=== PATIENT | female | born 1970 | race Two or more races ===

== ENCOUNTER 2022-06-25 14:18 | Emergency (ER) | payer OTHER ==
[~2022-06-25] VITALS: Ht 160 cm; Wt 62.1 kg
[2022-06-25] MEDS ORDERED: LEVO-T88 MCG PO (14:36)
[2022-06-25] MEDS ORDERED: LIOTHYRONINE SO5 MCG PO (14:36)
== END 2022-06-25 18:51 | disposition home or self-care (01) ==
LOC: ER 14:18
DX: N39.0 Urinary tract infection, site not specified (principal)

== ENCOUNTER 2024-05-17 05:00 | Emergency (ER) | payer OTHER ==
[~2024-05-17] VITALS: Ht 160 cm; Wt 58.1 kg
[~2024-05-17 05:00] MED LIST: LEVO-T88 MCG PO; LIOTHYRONINE SO5 MCG PO
[2024-05-17] MEDS ORDERED: ESCITALOPRAM OX10 MG (05:08)
[2024-05-17] MEDS ORDERED: RINGERS SOLUTION,LACTATED 1,000 ML IV STA (05:44)
[2024-05-17] MEDS ORDERED: KETOROLAC TROMETHAMINE 30 MG VIAL IV STA (05:45)
[2024-05-17] MEDS ORDERED: MEPERIDINE HCL/PF 50 MG/ML VIAL IM STA (05:45)
[2024-05-17] MEDS ORDERED: PROMETHAZINE HCL 50 MG/ML AMPUL IM STA (05:46)
[2024-05-17] MEDS ORDERED: KETOROLAC TROMETHAMINE 30 MG VIAL ONE (05:52)
[2024-05-17] MEDS ORDERED: PROMETHAZINE HCL 50 MG/ML AMPUL IM ONE (05:53)
[2024-05-17 06:08] LABS: HEMATOCRIT 35.4 % (36.0-45.00); HEMOGLOBIN 12.2 g/dL (12.0-15.00); MEAN CELL VOLUME 93.9 fL (80.00-100.00); MEAN CORPUSCULAR HEMOGLOBIN 32.4 pg (27.00-32.0); MEAN CORPUSCULAR HGB CONC 34.5 g/dl (32.0-36.0); PLATELET COUNT 231 K/uL (150-450); RED BLOOD COUNT 3.78 M/uL (4.00-6.00); RED CELL DISTRIBUTION WIDTH 13.2 % (11.5-14.5)
[2024-05-17 06:27] LABS: CALCIUM 9.7 mg/dL (8.5-10.1); CREATININE SERUM 0.72 mg/dL (0.55-1.02); GFR 85.06; POTASSIUM 3.29 mEq/L (3.5-5.1)
[2024-05-17 11:00] LABS: PH,URINE 7.5 (5.0-8.0); URINE APPEARANCE Clear; URINE BILIRRUBIN Negative (NEGATIVE); URINE BLOOD Trace; URINE COLOR Yellow; URINE GLUCOSE Negative (NEGATIVE); URINE LEUKOCYTE Negative; URINE NITRATE Negative; URINE PROTEIN Negative (NEGATIVE); URINE UROBILINOGEN 0.2 E.U./dl
[2024-05-17 11:04] LABS: URINE BACTERIA 120.9 uL (0.0-1933); URINE EPITHELIAL CELLS 4.1 uL (0.0-38.8); URINE RBC 29.9 uL (0.0-20.8); URINE WBC 4.1 uL (0.0-23.2)
[2024-05-17 11:16] LABS: URINE KETONE 80 (NEGATIVE)
== END 2024-05-17 14:48 | disposition home or self-care (01) ==
LOC: ER 05:00
DX: N20.9 Urinary calculus, unspecified (principal); R10.9 Unspecified abdominal pain

== ENCOUNTER 2024-05-23 16:04 | Outpatient (CLI) | payer OTHER ==
[~2024-05-23 16:04] MED LIST changes: +ESCITALOPRAM OX10 MG
== END 2024-05-23 16:20 | disposition home or self-care (01) ==
LOC: TOM 16:04
DX: N20.0 Calculus of kidney (principal); N39.9 Disorder of urinary system, unspecified